=== PATIENT | male | born 1965 | race African-American/Black ===

== ENCOUNTER 2019-08-21 23:33 | Emergency (ER) | payer BC ==
[~2019-08-21] VITALS: Ht 172.7 cm; Wt 74.8 kg
[2019-08-21 23:38] VITALS: Ht 172.7 cm; Wt 74.8 kg
[2019-08-22 00:09] LABS: BASOPHIL % 0.5 % (0-2); PLATELET COUNT 262 x10^3mcL (130-400)
[2019-08-22 00:11] LABS: RED CELL DISTRIBUTION WIDTH 15.6 % (11.5-14.5)
[2019-08-22 00:20] LABS: CALCIUM 8.7 mg/dL (8.5-10.1); CARBON DIOXIDE 25.1 mmol/L (21-32); CHLORIDE SERUM 108 mmol/L (98-107); CREATININE SERUM 1.2 mg/dL (0.7-1.3); GFR1 > 60 mL/min; GLUCOSE SERUM 103 mg/dL (74-106); POTASSIUM SERUM 4.1 mmol/L (3.5-5.1); SODIUM SERUM 139 mmol/L (136-145)
[2019-08-22 00:25] LABS: ALKALINE PHOSPHATASE 60 U/L (46-116); ALT/SGPT 34 U/L (16-63); AST/SGOT 25 U/L (15-37); BILIRUBIN TOTAL 0.3 mg/dL (0.20-1.00); C REACTIVE PROTEIN 0.2 mg/dL (<=0.9); TOTAL PROTEIN, SERUM 6.4 g/dL (6.4-8.2)
[2019-08-22 00:32] LABS: ALBUMIN 3.3 g/dL (3.4-5.0)
[2019-08-22 01:08] LABS: ERYTHROCYTE SED RATE 5 mm/hr (0-20)
[2019-08-22 01:42] VITALS: BP 118/64
== END 2019-08-22 01:42 | disposition home or self-care (01) ==
LOC: ED 23:33
PROVIDERS: Emergency Medicine
DX: M76.9 Unspecified enthesopathy, lower limb, excluding foot (principal); M25.561 Pain in right knee
CPT/HCPCS: J1885; J2270; J2405